=== PATIENT | male | born 2000 | race African-American/Black ===

== ENCOUNTER 2023-07-15 19:00 | Emergency (ER) | payer MEDICAID ==
[~2023-07-15] VITALS: Ht 185.4 cm; Wt 77.0 kg
[2023-07-15 19:11] VITALS: BP 128/65; PULSE 51; RESP 16; TEMP 98.9; O2SAT 99
[2023-07-15] MEDS ORDERED: KETOROLAC 30MG/ML VIAL IM ONE (23:45)
[2023-07-15] MEDS ORDERED: BACITRACIN ZINC OINT UDPKT TOP ONE (23:45)
[2023-07-15] MEDS ORDERED: TETANUS, DIPHTHERIA, PERTUSSIS VAC/PF 0.5ML (>10YR OLD) IM ONE (23:45)
[2023-07-15] MEDS ORDERED: LIDOCAINE HCL/PF 1% 10 MG/ML 5ML VIAL INFIL ONE (23:45)
[2023-07-16] MEDS ORDERED: BACITRACIN ZINC OINT UDPKT TOP ONE (02:00)
[2023-07-16] MEDS ORDERED: BO1 TP (02:43)
[2023-07-16] MEDS ORDERED: NAPR-681 MT (02:43)
[2023-07-16] MEDS ORDERED: AMOX1TAB16 MT (02:44)
== END 2023-07-16 03:19 | disposition home or self-care (01) ==
LOC: ER 19:00
DX: S81.812A Laceration without foreign body, left lower leg, initial encounter (principal); W18.39XA Other fall on same level, initial encounter; Y93.89 Activity, other specified; Y92.89 Other specified places as the place of occurrence of the external cause; Y99.8 Other external cause status
CPT/HCPCS: 99284; 73590; 90715; 12004; 90471; 96372; J3490; J1885

== ENCOUNTER 2023-07-24 13:19 | Emergency (ER) | payer MEDICAID ==
[~2023-07-24] VITALS: Ht 182.9 cm; Wt 74.0 kg
[~2023-07-24 13:19] MED LIST: AMOX1TAB16 MT; BO1 TP; NAPR-681 MT
[2023-07-24 13:33] VITALS: BP 110/52; PULSE 65; RESP 20; TEMP 98.6; O2SAT 100
== END 2023-07-24 17:09 | disposition home or self-care (01) ==
LOC: ER 13:45
DX: Z48.00 Encounter for change or removal of nonsurgical wound dressing (principal); J45.909 Unspecified asthma, uncomplicated
CPT/HCPCS: 99281

== ENCOUNTER 2023-07-31 16:23 | Emergency (ER) | payer MEDICAID ==
[~2023-07-31] VITALS: Ht 185.4 cm; Wt 75.0 kg
[2023-07-31 16:29] VITALS: BP 136/73; TEMP 98.7; O2SAT 99
[2023-07-31 16:36] VITALS: PULSE 72; RESP 18
== END 2023-07-31 20:02 | disposition home or self-care (01) ==
LOC: ER 16:23
DX: S81.812D Laceration without foreign body, left lower leg, subsequent encounter (principal); J45.909 Unspecified asthma, uncomplicated; X58.XXXD Exposure to other specified factors, subsequent encounter
CPT/HCPCS: 99281; Z7610

== ENCOUNTER 2023-09-18 12:59 | Emergency (ER) | payer MEDICAID ==
[~2023-09-18] VITALS: Ht 185.4 cm; Wt 77.0 kg
[2023-09-18 13:26] VITALS: O2SAT 98
[2023-09-18] MEDS ORDERED: NAPR-681 PO (15:28)
[2023-09-18 16:55] VITALS: BP 131/78; PULSE 60; RESP 20; TEMP 97.9
== END 2023-09-18 16:58 | disposition home or self-care (01) ==
LOC: ER 12:59
DX: S81.812D Laceration without foreign body, left lower leg, subsequent encounter (principal); J45.909 Unspecified asthma, uncomplicated; X58.XXXD Exposure to other specified factors, subsequent encounter
CPT/HCPCS: 73610; 99283; Z7610